=== PATIENT | female | born 1985 ===

== ENCOUNTER 2023-03-01 10:37 | Inpatient (IN) | payer MEDICAID ==
[2023-03-01] MEDS ORDERED: Tranexamic Acid IN NACL,ISO-OS 1,000 MG in Premix Bag 1 BAG IV PRN ×2 (11:14)
[2023-03-01] MEDS ORDERED: Sodium Chloride 0.9% 10 ML Syringe FLUSH PRN (11:14)
[2023-03-01] MEDS ORDERED: Butorphanol 1 MG/ML SDV IVPUSH PRN (11:14)
[2023-03-01] MEDS ORDERED: Water For Irrigation,Sterile 1,000 ML Container IRR PRN (11:14)
[2023-03-01] MEDS ORDERED: Carboprost Tromethamine 250 MCG/1 mL Vial IM PRN (11:14)
[2023-03-01] MEDS ORDERED: Lidocaine 1% 50 ML MDV INJECT PRN (11:14)
[2023-03-01] MEDS ORDERED: Sodium Chloride 0.9% 2.5 ML Syringe FLUSH PRN (11:14)
[2023-03-01] MEDS ORDERED: Misoprostol 200 MCG Tab PO PRN (11:14)
[2023-03-01] MEDS ORDERED: Methylergonovine 0.2 MG/1 ML Amp IM PRN (11:14)
[2023-03-01] MEDS ORDERED: Sodium Chloride 0.9% 20 ML SDV IV PRN (11:14)
[2023-03-01] MEDS ORDERED: Oxytocin/0.9 % Sodium Chloride 30 UNIT/500 ML BAG IV SCH (11:15)
[2023-03-01] MEDS ORDERED: Lactated Ringers 1,000 ML IV SCH (11:15)
[2023-03-01] MEDS ORDERED: Cetirizine 10 MG Tab PO SCH (12:00)
[2023-03-01 12:04] LABS: HEMATOCRIT 41.7 % (36.0-46.0); MEAN CORPUSCULAR HEMOGLOBIN 29.1 pg (27.0-32.0); MEAN CORPUSCULAR HGB CONC 33.6 g/dL (31.0-37.0); MEAN CORPUSCULAR VOLUME 86.7 fL (80.0-98.0); MEAN PLATELET VOLUME 12.5 fL (7.40-12.00); RED BLOOD CELL COUNT 4.81 M/uL (4.30-5.90); WHITE BLOOD CELL COUNT,WBC 14.28 K/uL (4.0-11.0)
[2023-03-01] MEDS ORDERED: ePHEDrine 50 MG/ML SDV IVPUSH PRN ×2 (15:45)
[2023-03-01] MEDS ORDERED: Ropivacaine HCl/PF 400 MG in Premix Bag 1 BAG EPIDUR SCH (15:45)
[2023-03-01] MEDS ORDERED: Phenylephrine HCl 0.5 MG/5 ML AMP IVPUSH PRN (15:45)
[2023-03-01] MEDS ORDERED: Nalbuphine 10 MG/0.5 ML Syringe IVPUSH ONE (23:33)
[2023-03-01] MEDS ORDERED: Nalbuphine 10 MG/0.5 ML Syringe ONE (23:38)
[2023-03-02] MEDS ORDERED: Nalbuphine 10 MG/0.5 ML Syringe IVPUSH PRN (01:13)
[2023-03-02] MEDS ORDERED: Nalbuphine 10 MG/0.5 ML Syringe IM ONE (01:35)
[2023-03-02] MEDS ORDERED: Terbutaline 1 MG/ML SDV SUBCUT PRN (06:16)
[2023-03-02] MEDS ORDERED: Oxytocin/0.9 % Sodium Chloride 30 UNIT/500 ML BAG IV SCH ×3 (06:30→11:15)
[2023-03-02] MEDS ORDERED: Morphine 2 MG/ML SYRINGE IVPUSH PRN (10:56)
[2023-03-02] MEDS ORDERED: droPERidol 5 MG/2 ML SDV IVPUSH PRN (10:56)
[2023-03-02] MEDS ORDERED: fentaNYL 50 MCG/ML SDV IVPUSH PRN ×2 (10:56)
[2023-03-02] MEDS ORDERED: Acetaminophen/oxyCODONE 325-5 MG Tab PO PRN ×3 (10:56→12:42)
[2023-03-02] MEDS ORDERED: HYDROmorphone 1 MG/ML Syringe IVPUSH PRN (10:56)
[2023-03-02] MEDS ORDERED: Albuterol 0.083% 2.5 MG/3 ML Neb Soln NEB PRN (10:56)
[2023-03-02] MEDS ORDERED: diphenhydrAMINE 50 MG/ML SDV IVPUSH PRN ×2 (10:56→12:42)
[2023-03-02] MEDS ORDERED: ePHEDrine 50 MG/ML SDV IVPUSH PRN (10:56)
[2023-03-02] MEDS ORDERED: Naloxone 0.4 MG/ML SDV IVPUSH PRN (10:56)
[2023-03-02] MEDS ORDERED: Ondansetron 4 MG/2 ML SDV IVPUSH PRN ×3 (10:56→12:42)
[2023-03-02] MEDS ORDERED: Metoclopramide 10 MG/2 ML SDV IVPUSH PRN (10:56)
[2023-03-02] MEDS ORDERED: Phenylephrine 1% 10 MG/ML SDV ONE (11:08)
[2023-03-02] MEDS ORDERED: Ropivacaine 0.5% 5 MG/ML 30 ML SDV ONE (11:08)
[2023-03-02] MEDS ORDERED: Ketorolac 30 MG/ML SDV ONE (11:08)
[2023-03-02] MEDS ORDERED: Ondansetron 4 MG/2 ML SDV ONE (11:08)
[2023-03-02] MEDS ORDERED: Dexmedetomidine 200 MCG/2 ML SDV ONE (11:08)
[2023-03-02] MEDS ORDERED: Oxytocin 10 Units/1 ML SDV ONE (11:08)
[2023-03-02] MEDS ORDERED: Morphine PF 10 MG/10 ML SDV ONE (11:09)
[2023-03-02] MEDS ORDERED: fentaNYL 100 MCG/2 ML SDV ONE (11:09)
[2023-03-02] MEDS ORDERED: Water For Injection, Sterile 20 ML ONE (11:09)
[2023-03-02] MEDS ORDERED: ceFAZolin 1 GM Vial ONE (11:13)
[2023-03-02] MEDS ORDERED: Citric Acid/Sodium Citrate Solution 30 ML Cup PO ONE (11:15)
[2023-03-02] MEDS ORDERED: Dexamethasone 4 MG/ML 5 ML MDV ONE (11:15)
[2023-03-02] MEDS ORDERED: ceFAZolin 1 GM in Sodium Chloride 0.9% 50 ML IV ONE (11:15)
[2023-03-02] MEDS ORDERED: Azithromycin 500 MG Vial ONE (11:29)
[2023-03-02] MEDS ORDERED: Azithromycin 500 MG in Sodium Chloride 0.9% 250 ML IV ONE (11:45)
[2023-03-02] MEDS ORDERED: droPERidol 5 MG/2 ML SDV ONE (11:48)
[2023-03-02] MEDS ORDERED: Lidocaine 2% 5 ML SDV ONE (12:39)
[2023-03-02] MEDS ORDERED: Succinylcholine/Sod PF 100 MG/5 ML SYRINGE IV ONE (12:39)
[2023-03-02] MEDS ORDERED: Oxytocin 10 Units/1 ML SDV IM PRN (12:42)
[2023-03-02] MEDS ORDERED: Bisacodyl 10 MG Supp RECTAL PRN (12:42)
[2023-03-02] MEDS ORDERED: Lanolin 100% Cream 7 GM Tube TOP PRN (12:42)
[2023-03-02] MEDS ORDERED: Methylergonovine 0.2 MG/1 ML Amp IM PRN (12:42)
[2023-03-02] MEDS ORDERED: Misoprostol 200 MCG Tab RECTAL PRN (12:42)
[2023-03-02] MEDS ORDERED: Lactated Ringers 1,000 ML IV SCH (12:45)
[2023-03-02 13:31] LABS: PH,UMBILICAL ARTERIAL 7.199 (7.18-7.38); PH,UMBILICAL VENOUS 7.297 (7.25-7.45)
[2023-03-02] MEDS: Ketorolac 30 MG/ML SDV IVPUSH SCH ×2 (16:03→18:53)
[2023-03-02] MEDS ORDERED: Acetaminophen 1,000 MG in Premix Bag 1 BAG IV SCH (18:00)
[2023-03-02] MEDS: Simethicone 80 MG Tab.Chew PO SCH (19:04)
[2023-03-02] MEDS: Acetaminophen 1,000 MG in Premix Bag 1 BAG IV SCH (20:30)
[2023-03-02] MEDS: Docusate Sodium 100 MG Cap PO SCH (23:59)
[2023-03-03] MEDS: Simethicone 80 MG Tab.Chew PO SCH ×2 (00:03→06:32)
[2023-03-03] MEDS: Ketorolac 30 MG/ML SDV IVPUSH SCH ×3 (00:37→12:36)
[2023-03-03] MEDS: Acetaminophen 1,000 MG in Premix Bag 1 BAG IV SCH (04:03)
[2023-03-03 05:46] LABS: HEMATOCRIT 34.2 % (36.0-46.0); HEMOGLOBIN 11.2 g/dL (12.0-16.0)
[2023-03-03] MEDS ORDERED: oxyCODONE 5 MG Tab PO PRN (09:21)
[2023-03-03] MEDS ORDERED: Ibuprofen 800 MG Tab PO PRN (18:45)
[2023-03-03] MEDS: Acetaminophen 325 MG Tab PO PRN (20:47)
[2023-03-03] MEDS ORDERED: Triamcinolone Acetonide 0.1% Crm 15 GM Tube TOP SCH (21:00)
[2023-03-04] MEDS ORDERED: Ketorolac 30 MG/ML SDV IVPUSH SCH (01:00)
[2023-03-04] MEDS: Simethicone 80 MG Tab.Chew PO SCH (01:31)
[2023-03-04] MEDS: Docusate Sodium 100 MG Cap PO SCH ×2 (01:31→10:38)
[2023-03-04] MEDS: Acetaminophen 325 MG Tab PO PRN ×2 (02:49→09:04)
== END 2023-03-04 12:55 | disposition home or self-care (01) | DRG 788 ==
LOC: MW.OBCHECK 10:37 → MW.OB 10:41 → MW.OBCHECK 11:14 → OBSVTOIN 03-02 11:49 → MW.OB 03-02 16:07
PROVIDERS: ADMIT Obstetrics & Gynecology; ATTEND Obstetrics & Gynecology
PROC: 10D00Z1 Extraction of Products of Conception, Low, Open Approach (ICD-10-PCS; principal; 2023-03-02)
DX: O42.02 Full-term premature rupture of membranes, onset of labor within 24 hours of rupture (principal); Z37.0 Single live birth; O62.1 Secondary uterine inertia; Z3A.38 38 weeks gestation of pregnancy
CPT/HCPCS: 01961; 36415; 59025; 64488; 82803; 84112; 85014; 85018; 85027; 86592; 86850; 86900; 86901; A9270-GY; J0131; J0330; J0456; J0690; J1100; J1790; J1885; J2274; J2300; J2371; J2405; J2590; J2795; J3010; J3490; J7050; J7120